=== PATIENT | female | born 1950 | race Caucasian/White ===

== ENCOUNTER 2019-11-19 09:32 | Emergency (ER) | payer MEDICARE, OTHER ==
[~2019-11-19] VITALS: Ht 170.2 cm; Wt 72.0 kg
[~2019-11-19 09:32] MED LIST: AMIODIPINE; ASPIRIN; CHOL200074; COMBIV; SULF-165; VIT D
[2019-11-19 10:35] VITALS: BP 127/81
== END 2019-11-19 11:00 | disposition home or self-care (01) ==
LOC: ER 09:32
DX: T14.90XA Injury, unspecified, initial encounter (principal); V49.49XA Driver injured in collision with other motor vehicles in traffic accident, initial encounter; Y93.89 Activity, other specified; Y92.89 Other specified places as the place of occurrence of the external cause; Y99.8 Other external cause status; E11.9 Type 2 diabetes mellitus without complications; I10 Essential (primary) hypertension; Z86.73 Personal history of transient ischemic attack (TIA), and cerebral infarction without residual deficits; Z79.899 Other long term (current) drug therapy
CPT/HCPCS: 99283